=== PATIENT | female | born 1970 | race Caucasian/White ===

== ENCOUNTER 2019-10-10 17:46 | Emergency (ER) | payer BC ==
[~2019-10-10] VITALS: Ht 170.2 cm; Wt 78.9 kg
[2019-10-10] MEDS ORDERED: FAMOTIDINE. 20 MG/2 ML VIAL IV ONE ×2 (18:06→18:15)
[2019-10-10] MEDS ORDERED: IPRATROPIUM BROMIDE 0.5 MG/2.5 ML NEBU NEB ONE (18:15)
[2019-10-10] MEDS ORDERED: IV NORMAL SALINE 1000 ML BAG IV ONE (18:15)
[2019-10-10] MEDS ORDERED: ALBUTEROL SULFATE 2.5 MG/3 ML NEBU NEB ONE (18:15)
[2019-10-10] MEDS ORDERED: ALBUTEROL SULFATE 2.5 MG/3 ML NEBU ONE (18:16)
[2019-10-10] MEDS ORDERED: IPRATROPIUM BROMIDE 0.5 MG/2.5 ML NEBU ONE (18:16)
--- NOTE | 2019-10-10 18:40 | NUR ---
Pt resting with NAD noted at this time.
--- NOTE | 2019-10-10 19:10 | NUR ---
RECEIVED HAND OFF AND SBAR FR OUTGOING DAY SHIFT RN (KARINA) PT AOX3, NAD RA R AC G22 IVF INFUSING WELL MONITORED ACCORDINGLY DENIES PAIN, NO OTHER CONCERNS AT THIS TIME
--- NOTE | 2019-10-10 19:13 | NUR ---
SBAR report given to Daniela PHILIP
--- NOTE | 2019-10-10 19:36 | NUR ---
Patient discharged to home in stable conditon. Written and verbal after care instructions given. Patient verbalizes understanding of instructions. ambulatory w/ stable gait all belongings w/ pt iv dc, dressed
[2019-10-10 19:38] VITALS: BP 140/73
== END 2019-10-10 19:39 | disposition home or self-care (01) ==
LOC: ER 17:49
DX: T41.3X5A Adverse effect of local anesthetics, initial encounter (principal); T78.40XA Allergy, unspecified, initial encounter; X58.XXXA Exposure to other specified factors, initial encounter; Y92.89 Other specified places as the place of occurrence of the external cause
CPT/HCPCS: 94664; 96374; 99283; J3490; A4663; J3590; J7030